=== PATIENT | female | born 1975 | race Caucasian/White ===

== ENCOUNTER 2018-02-17 03:41 | Emergency (ER) | payer BC, SELFPAY ==
[2018-02-17 03:42] VITALS: BP 136/86; PULSE 83; RESP 16; TEMP 36.5; O2SAT 100; BMI 19.1
--- NOTE | 2018-02-17 04:10 | CT_ITS ---
STUDY: CT ABDOMEN AND PELVIS WITH CONTRAST REASON FOR EXAM: Female, 43 years old. Bloody diarrhea and abdominal pain, cramping RADIATION DOSAGE (If Supplied By Facility): CTDIvol = ( 13.06 ) mGy, DLP = ( 286.25 ) mGycm TECHNIQUE: Transaxial 3.75 mm images were obtained from the dome of the diaphragm to the symphysis pubis with oral contrast. 100 ml of Isovue 300 contrast was administered. Sagittal and coronal images were reconstructed. Individualized dose optimization techniques were used for this CT. COMPARISON: None. FINDINGS: The visualized lung bases are unremarkable. The visualized portions of the heart are within normal limits. Left hepatic cyst 1.2 x 1.9 cm. Trace perihepatic fluid along the right inferior hepatic lobe. There is low attenuation along the falciform ligament most consistent with focal fatty sparing. Normal gallbladder and extrahepatic biliary system. Normal spleen. Normal pancreas. Normal bilateral adrenal glands. Normal right kidney. Left mid renal cortical low-attenuation has a cystic appearance, however measures between 35 and 52 Hounsfield units. Normal visualized stomach. Normal small intestine. Abnormal enhancement of the sigmoid colon with a heterogeneous luminal enhancement, indistinct contour, for delineation of the lumen image 75-86 series 2 image 47-65 series 601 image 52-65 series 602. There is moderate amount of fecal material. The appendix is visualized and appears normal. Normal abdominal aorta. Normal inferior vena cava. Normal retroperitoneum. 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 Uterus is to the Normal urinary bladder. Uterus is to the right of pelvic midline. There is mild pelvic fluid. There is pelvic fat stranding. Normal abdominal wall. Normal osseous structures. CT/Abdomen/Pelvis WITH Contrast IMPRESSION: Abnormal sigmoid colon with abnormal enhancement, indeterminate lumen and course. An inflammatory process is not separable from a mass. There is adjacent mesenteric fat stranding and trace pelvic fluid. There is no abscess, collection, perforation or obstruction. 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 Left hepatic cyst, indeterminate low attenuation in the left kidney, ultrasonographic correlation advised. Moderate amount of retained fecal material. Electronically Signed: Shayna Oliva MD at 6:47 EDT , Service support ,
[2018-02-17 04:22] LABS: Absolute Lymphocyte Count 1.74 X10^3/ul (0.83-4.51); Absolute Neutrophil Count 4.9 X10^3/uL (2.0-7.7); Basophil# 0.03 X10^3/uL; Basophil% 0.4 % (0-1); Eosinophil# 0.17 X10^3/uL; Eosinophils% 2.3 % (0-5); Hematocrit 37.2 % (37-47); Lymphocyte # 1.74 X10^3/ul (4.0); Lymphocyte % 23.7 % (19-41); Mean Corp Hgb Conc 32.3 g/gl (32-36); Mean Corpuscular Hgb 28.8 pg (27.0-32.0); Mean Corpuscular Volume 89.2 fL (81-99); Mean Platelet Vol. 10.3 fl (6.2-12.0); Monocyte# 0.44 X10^3/uL; Neutrophil # 4.94 X10^3/uL (2.7-7.7); Neutrophil % 67.5 % (47-70); POSITIVE COUNT NO; POSITIVE DIFFERENTIAL NO; POSITIVE MORPHOLOGY NO; Platelet Count 302 K/mm3 (150-450); RBC Distribution Width CV 13.7 % (11.6-14.6); RBC Distribution Width SD 44.6 fl (35.1-43.9); Red Blood Count 4.17 M/mm3 (4.2-5.4); White Blood Count 7.3 K/mm3 (4.4-11.0)
[2018-02-17 04:30] LABS: Anion Gap 7 (5-15); BUN 8 mg/dL (7-18); BUN/Creat Ratio 10.3 RATIO (10-20); Calcium,Total 8.5 mg/dL (8.5-10.1); Chloride 108 mmol/L (98-107); Creatinine, Serum 0.78 mg/dL (0.55-1.02); EST Glomerular Filtration Rate 86 mL/min (>60); Est Glom Filt Rate - Afr Amer 103 mL/min (>60); Estimated Creatinine Clearance 72.61 ml/min; Glucose 83 mg/dL (74-106); Potassium 4.9 mmol/L (3.5-5.1); Sodium Level 142 mmol/L (136-145)
[2018-02-17] MEDS: 0.9% Normal Saline 1,000 ML 1000 ML IV (04:34)
[2018-02-17] MEDS: Ondansetron 4 MG/2 ML Vial IV (04:34)
[2018-02-17 04:38] VITALS: BP 114/73; BP 121/70; BP 122/65; PULSE 65; PULSE 69; PULSE 80
[2018-02-17 04:42] LABS: Partial Thromboplast Time 31.4 Seconds (24.1-36.2)
[2018-02-17 05:47] VITALS: RESP 16
--- NOTE | 2018-02-17 07:08 | ED.VISSUMM ---
- ER Visit Summary Date of Service: 02/17/18 Chief Complaint: GI bleed History of Present Illness: The patient is a 43 F who reports that 5 days ago she began having this sensation as though she was going to have diarrhea. States she would then go to the restroom and passed gas and small volumes of mucus with a blood-tinged. States that she is having a formed bowel movement approximately once a day. This is normal in caliber. She reports that she has crampy abdominal pain that is 9 out of 10 at worst and 2 out of 10 currently. It is worsened by activity and relieved by remaining still. She reports that she has had similar symptoms off and on for approximately 5 years. No family history of Crohn's or ulcerative colitis. She does report that her grandfather had colon cancer. She has never seen a vocational rehabilitation counselor. She has never had a colonoscopy. Physical Examination: Vitals: Stable. Afebrile. General: Well-nourished and well-developed. Head: Normocephalic atraumatic. Neck: Supple, no lymphadenopathy. No JVD. Nontender. Cardiovascular: Regular rate and rhythm. No murmurs. Respiratory: No respiratory distress. Clear to auscultation bilaterally. Abdominal: Soft, nontender, nondistended, normal bowel sounds. No guarding, rebound, or peritoneal signs. Back: Nontender. Extremities: Nontender, no edema. Skin: Normal color, no rash. Neurologic: Alert and oriented ?3. Cranial nerves II through XII are intact. Normal strength and sensation. Psych: Normal affect. Test Results: CBC is normal. Her hemoglobin is 12. There is not an old for comparison. Chem-7 shows a chloride of 108. Coags are normal. Clinical Impression(s) from Imaging Studies Abdomen/Pelvis CT 02/17/18 04:10 IMPRESSION: Abnormal sigmoid colon with abnormal enhancement, indeterminate lumen and course. An inflammatory process is not separable from a mass. There is adjacent mesenteric fat stranding and trace pelvic fluid. There is no abscess, collection, perforation or obstruction. 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 Left hepatic cyst, indeterminate low attenuation in the left kidney, ultrasonographic correlation advised. Moderate amount of retained fecal material. Emergency Department Course and Treatment: Patient had negative orthostatic vital signs. She is resting comfortably. Treatment Plan: The patient was discussed with Dr. Kang. She states that she will see her next week and do a colonoscopy for further evaluation. I did discuss the patient the possibility of inflammatory bowel disease or colon cancer and she understands the importance of follow-up. Return to the emergency department for any worsening symptoms. Disposition: To home in improved and stable condition. Impression: 1. Stable lower GI bleed. This note was generated with [employer] software. It may contain incorrect words, spelling, and punctuation that were not noted in review of the chart prior to signing ED Disposition - Plan for ED Patient: Disposition: Home or Assisted Living Chief Complaint: GI Bleed Instructions: ED Hematochezia Stable Referrals: Dena Kang MD [STAFF PHYSICIAN] - 1 Week
[2018-02-17 07:13] VITALS: BP 121/64; PULSE 79; RESP 18; O2SAT 100
--- NOTE | 2018-02-17 07:14 | ED.RN ---
THIS NURSE REVIEWED D/C INSTRUCTIONS WITH PT. PT VERBALIZED UNDERSTANDING OF INSTRUCTIONS. IV D/C. IV CATHETER INTACT. PT TOLERATED WELL. PT DENIES FURTHER NEEDS OR QUESTIONS AT THIS TIME. PT AMBULATES FROM ROOM ON OWN WITHOUT ASSISTANCE FROM STAFF
== END 2018-02-17 07:16 | disposition home or self-care (01) ==
PROVIDERS: Emergency Provider Emergency Medicine
DX: K92.1 Melena (principal); R19.7 Diarrhea, unspecified; R10.9 Unspecified abdominal pain
CPT/HCPCS: 74177; 80048; 85025; 85610; 85730; 96361; 96374; 99284; J7030; Q9967; A4216; J2405

== ENCOUNTER 2018-03-07 07:44 | Inpatient (IN) | payer BC, OTHER, SELFPAY ==
[2018-03-07] VITALS (9 sets, daily range): BP systolic 103–135; BP diastolic 65–83; PULSE 63–74; RESP 14–16; TEMP 36–36.8; O2SAT 99–100; BMI 19.4
--- NOTE | 2018-03-07 | IMM_PTH ---
PATIENT: JULIAN MANUEL LOC: MS2 U#:[id number] AGE/SX: 43/F ROOM: [facility] [place] RE03/07/[address]: Dr. Madan Love MD : 1975 BED: 1 DIS: 03/10/2018 SPEC #: [id number] RECD: 03/10/18 10:01 STATUS: JENNIFER REPatricia #: [id number] OTONIEL: 03/07/18 00:[address]: Madan Love DEPT: IMMUNOHISTOCHEMISTRY RECD BY: Diane Sharma ENTERED: 03/16/18 10:07 SP TYPE: IMMUNO OT DR: Out [facility] Doctor Tissues: C - Rectosigmoid junction Procedures: P53 (initial) MSH2 (add) MLH-1 (add) MSH6 (add) Anti-PMS2 (add) HAIDER-2 (add) HER2 CRISTOPHER (add) KI-67 (add) PHYSICIAN & INSTITUTION [place] [id number] SPECIMEN INFORMATION: Tissue Source: A ? 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 Localization is made via biotin free immunoperoxidase method. Appropriate controls are performed and reacted as expected. Results on target cell population are indicated in the following table: RESULTS: ANTIBODY / CLONE RESULT Block C8 COLON CANCER PROFILE (Prognostic Markers) Ki-67 (30-9) moderate to high P53 (DO-7) 15% MSH2 (25D12) rare cells only MSH6 (44) negative MLH-1 (M1) positive PMS2 (GPD5850) positive HAIDER-2 (SP21) positive Her-2neu (CB11) negative These tests were developed and their performance characteristics determined by [facility]. They may not have been cleared or approved by the U.S. Food and Drug Administration. The FDA has determined that such clearance or approval is not necessary. INTERPRETATION: A. Lateral side wall nodule, biopsy: Invasive adenocarcinoma. Result of Microsatellite Instability Study: Positive (loss of mismatch protein; microsatellite instability detected). Near total loss of MSH2, Complete loss of MSH6 Case has been reviewed in consultation with Dr. Kovacs who concurs with the above diagnosis. IDC:SUNNY AM:jaylon 03/18/18
[2018-03-07 08:09] LABS: Internal QC Validated? YES +Cl - CLEAR BKGD; Pregnancy, Urine Negative Negative
--- NOTE | 2018-03-07 09:45 | COL_PTH ---
PATIENT: JULIAN MANUEL LOC: MS2 U#:[id number] AGE/SX: 43/F ROOM: [facility] [place] RE03/07/[address]: Dr. 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 Lateral side wall nodule for FS, specimen sent to lab 1219, B ? Appendix C ? Rectosigmoid colon, D ? Proximal donut, E ? Distal donut FROZEN SECTION DIAGNOSIS A. Lateral side wall nodule, biopsy: Negative for carcinoma. SJ:jyalon 03/07/18 MICROSCOPIC DIAGNOSIS A. Lateral side wall nodule, biopsy: Fibrofatty tissue with associated chronic and mild acute inflammation. No evidence of malignancy. B. Appendix, appendectomy: No significant pathologic change. No evidence of acute appendicitis. C. Rectosigmoid colon, segmental colectomy: Invasive adenocarcinoma. See comment for cancer checklist. D. Proximal mucosal donut, excision: Fragment of benign colonic tissue. E. Distal mucosal donut, excision: Fragment of benign colonic tissue. AM:jaylon 03/10/18 COMMENT C. COLON CANCER SUMMARY: Specimen ? rectosigmoid colon Procedure - colectomy Tumor site - rectosigmoid colon Tumor size ? 5 x 5 x 4.5 cm Macroscopic tumor perforation ? not present Histologic type ? adenocarcinoma with mucinous features Histologic grade ? low grade (moderately differentiated) Microscopic tumor extension ? tumor invades through muscularis propria into subserosal fat. Margins: Closest mucosal margin ? 8 cm from open resection margin Proximal mucosal margin ? uninvolved by invasive carcinoma Distal mucosal margin - uninvolved by invasive carcinoma Circumferential margin - uninvolved by invasive carcinoma Treatment effect - unknown Lymph-Vascular invasion ? not identified Perineural invasion - not identified Tumor deposits - not identified Lymph nodes: Number of lymph nodes examined - 29 Number of lymph nodes involved by invasive carcinoma - 4 Ancillary studies: See microsatellite instability study by IHC ([id number]) for complete details. Microsatellite instability ? microsatellite instability detected ([id number]) Immunohistochemistry Studies for Mismatch Repair Proteins: MLH1 ? no loss (intact nuclear positivity) MSH2 ? near total loss (very focal positivity). MSH6 ? total loss. PMS2 ? no loss (intact nuclear positivity). PATHOLOGIC STAGE: pT3 N1b Mx The above summary is in compliance with [employer] [place] [employer] (CAP) Cancer Protocols Checklist and [place] [employer] Committee on Cancer (AJCC), Staging Manual, 8th Ed. This case was discussed with Dr. Love 10:13 a.m. on 03/14/18. Case has been reviewed in consultation with Dr. Kovacs who concurs with the above diagnosis. IDC:SJ MICROSCOPIC DESCRIPTION Slides are reviewed. GROSS DESCRIPTION A - Received fresh for frozen section diagnosis labeled with the patient's name is a specimen designated lateral side wall nodule. The specimen consists of a piece of hamilton-pink soft tissue measuring 1 x 0.5 x 0.3 cm. The entire specimen is submitted in one cassette for frozen section diagnosis. / SUNNY:jaylon 03/07/18 B - Received is one container labeled with the patient's name and designated appendix. The specimen consists of an appendix measuring 5 cm in length and up to 0.5 cm in average diameter. The attached periappendiceal adipose tissue measures up to 1 cm in width. No obvious perforation is identified. The lumen contains fecal material. No fecalith is identified. General Accountant sections are submitted in one cassette. / SJ:jaylon 03/08/18 C - Received in fixative is one container labeled with the patient's name and designated rectosigmoid colon. The specimen consists of a previously opened segment of colon measuring 20 cm in length. One margin is stapled and other margin is opened. 8 cm away from the open resection margin and 9 cm away from the stapled margin, there is a cauliflower-like mass with focal area of ulceration measuring 5 x 5 x 4.5 cm. A small focal area of thickened mucosal fold is also noted measuring 0.4 cm in greatest dimension. Sections of the mass reveal it appears to involve the full thickness of the bowel wall. Sections of the pericolonic adipose tissue reveal multiple lymph nodes. The largest lymph node measures 1.5 cm in greatest dimension. General Accountant sections are submitted as follows: 1 ? resection margin, open resection margin is inked black, 2 ? thickened mucosal fold, 3-8 ? tumor (7 & 8 contains the luminal portion of the tumor), 9 ? enrollment representative section of uninvolved bowel wall, 10 ? multiple lymph nodes, 11 - multiple lymph nodes, 12 ? one serially sectioned lymph node, 13 ? one bisected lymph node, 14 - one serially sectioned lymph node, largest lymph node, 15 ? one bisected lymph node, 16 - one bisected lymph node, 17 - one bisected lymph node, 18 - one bisected lymph node, 19 - one bisected lymph node, 20 ? multiple lymph nodes. Sections will be submitted after infusion cycle. / SJ:jaylon 03/08/18 D - Received in fixative is one container labeled with the patient's name and designated proximal donut. The specimen consists of a donut-shaped piece of colonic tissue measuring 1.5 x 1.5 x 1 cm. Multiple sutures are noted. General Accountant sections are submitted in one cassette. / SJ:jaylon 03/08/18 E - Received in fixative is one container labeled with the patient's name and designated distal donut. The specimen consists of a donut-shaped piece of colonic tissue measuring 2 x 1.7 x 1 cm. The mucosa is focally congested. The specimen is serially sectioned and submitted entirely in one cassette. / SJ:jaylon 03/08/18 TC:0 CPT: 12834, 71181 x4, 64929 ADDENDUM ADDENDUM ADDENDUM ADDENDUM ADDENDUM ADDENDUM ADDENDUM ADDENDUM 04/26/2018 14:27 ADDENDUM 04/26/2018 14:27 ADDENDUM 04/26/2018 14:27 ADDENDUM 04/26/2018 14:27 ADDENDUM 04/26/2018 14:27 MICROSATELLITE INSTABILITY (MSI) ANALYSIS BY PCR FROM [employer] RESULTS: Microsatellite instability (MSI) analysis by PCR: Microsatellite stable (MIA) COMMENT: No defective mismatch repair is detected. Please see complete report in e-chart or EMR for further details
--- NOTE | 2018-03-07 09:45 | COL_PTH ---
PATIENT: JULIAN MANUEL LOC: MS2 U#:[id number] AGE/SX: 43/F ROOM: [facility] [place] RE03/07/[address]: Dr. 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 Lateral side wall nodule for FS, specimen sent to lab 1219, B ? Appendix C ? Rectosigmoid colon, D ? Proximal donut, E ? Distal donut FROZEN SECTION DIAGNOSIS A. Lateral side wall nodule, biopsy: Negative for carcinoma. SJ:jaylon 03/07/18 MICROSCOPIC DIAGNOSIS A. Lateral side wall nodule, biopsy: Fibrofatty tissue with associated chronic and mild acute inflammation. No evidence of malignancy. B. Appendix, appendectomy: No significant pathologic change. No evidence of acute appendicitis. C. Rectosigmoid colon, segmental colectomy: Invasive adenocarcinoma. See comment for cancer checklist. D. Proximal mucosal donut, excision: Fragment of benign colonic tissue. E. Distal mucosal donut, excision: Fragment of benign colonic tissue. AM:jaylon 03/10/18 COMMENT C. COLON CANCER SUMMARY: Specimen ? rectosigmoid colon Procedure - colectomy Tumor site - rectosigmoid colon Tumor size ? 5 x 5 x 4.5 cm Macroscopic tumor perforation ? not present Histologic type ? adenocarcinoma with mucinous features Histologic grade ? low grade (moderately differentiated) Microscopic tumor extension ? tumor invades through muscularis propria into subserosal fat. Margins: Closest mucosal margin ? 8 cm from open resection margin Proximal mucosal margin ? uninvolved by invasive carcinoma Distal mucosal margin - uninvolved by invasive carcinoma Circumferential margin - uninvolved by invasive carcinoma Treatment effect - unknown Lymph-Vascular invasion ? not identified Perineural invasion - not identified Tumor deposits - not identified Lymph nodes: Number of lymph nodes examined - 29 Number of lymph nodes involved by invasive carcinoma - 4 Ancillary studies: See microsatellite instability study by IHC ([id number]) for complete details. Microsatellite instability ? microsatellite instability detected ([id number]) Immunohistochemistry Studies for Mismatch Repair Proteins: MLH1 ? no loss (intact nuclear positivity) MSH2 ? near total loss (very focal positivity). MSH6 ? total loss. PMS2 ? no loss (intact nuclear positivity). PATHOLOGIC STAGE: pT3 N1b Mx The above summary is in compliance with [employer] [place] [employer] (CAP) Cancer Protocols Checklist and [place] [employer] on Cancer (AJCC), Staging Manual, 8th Ed. This case was discussed with Dr. Love 10:13 a.m. on 03/14/18. Case has been reviewed in consultation with Dr. Kovacs who concurs with the above diagnosis. IDC:SJ MICROSCOPIC DESCRIPTION Slides are reviewed. GROSS DESCRIPTION A - Received fresh for frozen section diagnosis labeled with the patient's name is a specimen designated lateral side wall nodule. The specimen consists of a piece of hamilton-pink soft tissue measuring 1 x 0.5 x 0.3 cm. The entire specimen is submitted in one cassette for frozen section diagnosis. / SUNNY:jaylon 03/07/18 B - Received is one container labeled with the patient's name and designated appendix. The specimen consists of an appendix measuring 5 cm in length and up to 0.5 cm in average diameter. The attached periappendiceal adipose tissue measures up to 1 cm in width. No obvious perforation is identified. The lumen contains fecal material. No fecalith is identified. Fitter Helper sections are submitted in one cassette. / SJ:jaylon 03/08/18 C - Received in fixative is one container labeled with the patient's name and designated rectosigmoid colon. The specimen consists of a previously opened segment of colon measuring 20 cm in length. One margin is stapled and other margin is opened. 8 cm away from the open resection margin and 9 cm away from the stapled margin, there is a cauliflower-like mass with focal area of ulceration measuring 5 x 5 x 4.5 cm. A small focal area of thickened mucosal fold is also noted measuring 0.4 cm in greatest dimension. Sections of the mass reveal it appears to involve the full thickness of the bowel wall. Sections of the pericolonic adipose tissue reveal multiple lymph nodes. The largest lymph node measures 1.5 cm in greatest dimension. Fitter Helper sections are submitted as follows: 1 ? resection margin, open resection margin is inked black, 2 ? thickened mucosal fold, 3-8 ? tumor (7 & 8 contains the luminal portion of the tumor), 9 ? bottling equipment sales representative section of uninvolved bowel wall, 10 ? multiple lymph nodes, 11 - multiple lymph nodes, 12 ? one serially sectioned lymph node, 13 ? one bisected lymph node, 14 - one serially sectioned lymph node, largest lymph node, 15 ? one bisected lymph node, 16 - one bisected lymph node, 17 - one bisected lymph node, 18 - one bisected lymph node, 19 - one bisected lymph node, 20 ? multiple lymph nodes. Sections will be submitted after infusion cycle. / SJ:jaylon 03/08/18 D - Received in fixative is one container labeled with the patient's name and designated proximal donut. The specimen consists of a donut-shaped piece of colonic tissue measuring 1.5 x 1.5 x 1 cm. Multiple sutures are noted. Fitter Helper sections are submitted in one cassette. / SJ:jaylon 03/08/18 E - Received in fixative is one container labeled with the patient's name and designated distal donut. The specimen consists of a donut-shaped piece of colonic tissue measuring 2 x 1.7 x 1 cm. The mucosa is focally congested. The specimen is serially sectioned and submitted entirely in one cassette. / SJ:jaylon 03/08/18 TC:0 CPT: 20065, 60067 x4, 24698 ADDENDUM ADDENDUM ADDENDUM ADDENDUM ADDENDUM ADDENDUM ADDENDUM ADDENDUM ADDENDUM ADDENDUM ADDENDUM ADDENDUM ADDENDUM ADDENDUM ADDENDUM ADDENDUM 05/04/2018 09:53 ADDENDUM 05/04/2018 09:53 ADDENDUM 05/04/2018 09:53 ADDENDUM 05/04/2018 09:53 ADDENDUM 05/04/2018 09:53 CORRECTED ADDENDUM 05/03/18 MICROSATELLITE INSTABILITY (MSI) ANALYSIS BY PCR FROM [employer] RESULTS: Microsatellite instability (MSI) analysis by PCR: Microsatellite instability ? low (MSI-L) COMMENT: Normal (C1) compared to tumor (C8). MSI is detected in 1 of 5 mononucleotide repeat markers. This genotype is not associated with hereditary nonpolyposis colorectal carcinoma (HNPCC). A phone call regarding the results was placed at 10:50 on 05/03/[address] Kovacs. A phone call and fax regarding the results was placed to Dr. Love?s office at 9:15 on 05/04/18. Please see complete report in e-chart or EMR for further details
[2018-03-07] MEDS: Bupivacaine Mpf 0.5% 30 ML VIAL (10:49)
--- NOTE | 2018-03-07 14:48 | PCM.OPRPT ---
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 Sign in was performed verifying patient, site, procedure, position, and DVT prophylaxis with SCDs. Patient received Cefotetan 2gm. Preoperative bowel prep of mechanical and antibiotic comprised of GoLYTELY and then neomycin and Flagyl 1 g 3 doses evening before was given. Following induction of general anesthetic, the patient was placed in a modified lithotomy position and care being taken to or by pressure points in the legs and arms. An upper body strap was placed and a upper body warmer was placed. A Castro catheter was placed. A rectal washout was performed with dilute Betadine solution. The patients abdomen and perineal area were then prepped and draped in the usual fashion. Timeout was performed verifying patient, site, position. Local anesthetic was injected above the umbilicus. Incision made and dissection carried down to the umbilical root fascia. 2 stay sutures were placed. Incision made in the fascia, the peritoneum entered under direct visualization. A 10 mm Caldwell trocar was inserted and secured with the stay sutures. Pneumoperitoneum to 15 mmHg was insufflated. 2 5mm ports were placed in the lower midline and later in the left paramedian position and a 10/12 port were placed in the right lower quadrant inferior laterally. Adhesions were taken down using Harmonic scalpel. . Visual inspection revealed a normal-appearing liver with no significant abnormalities. The large bulky tumor was seen in the pelvis with adhesions to the left lower quadrant. These adhesions were taken down sharply and using the Harmonic scalpel. Following this, the somewhat firm areas, which was still on the lateral abdominal wall was dissected and sent for frozen section. This returned as inflammation, but no signs of malignancy. Once this was completed, mobilization the avascular plane was undertaken from the ascending colon down to the area of the mid sigmoid with care taken at mobilization of the level of the iliac vessels then further down to the left lateral rectal peritoneal reflection. As mobilization progressed, the left and right ureters were able to be visualized and manipulated with aerosols assuring that the ureters were intact.. Once this left-sided mobilization was undertaken, a window was made in to the bare area just proximal to the inferior mesenteric vessels As dissection was continued, the EVY branches were identified and ligated with 10 and 5 mm hemoclips and divided with the Harmonic scalpel. Once this was fully divided and surrounded with dissection carried down to the area posterior to the rectum, a 60 mm echelon stapler with a thick load was placed and fired to transect the rectum. A second load was required. I performed an appendectomy dividing the mesoappendix with the Harmonic scalpel and the base of the appendix with the regular load stapler. The appendix was removed the right lower quadrant port site. With full dissection of the mesentery and full mobilization the colon, the umbilical incision was extended and a wound protector placed. The sigmoid colon were delivered through the wound protector. At this point at the planned transection point of the proximal sigmoid colon, the pericolonic were fully mobilized to the margin of the bowel using the harmonic scalpel. The bowel was transected family with a 10 blade scalpel. A 29 mm CEA circular stapler anvil was then placed in the descending colon region and a 2-0 Prolene pursestring suture was used to close the bowel around the anvil. The bowel did not easily make it to the pelvis, so therefore, mobilization splenic flexure using Harmonic Scalpel was completed with the colon being completely mobilized off to rectus fascia/left kidney. This allowed good reaching of the bowel to the pelvis without tension At this point, I proceeded down to the rectum. Rigid proctoscopy was performed after flooding the pelvis with saline. Insufflation demonstrated no leak at the rectal staple line. The staple line was felt to be approximately 15 cm. Next the 29 CEA stapler was lubricated and placed through the rectum up to the staple line. The spike was then opened just anterior to the previous echelon stapler line and the anvil properly seated onto the stapler and brought down to mid gap. The stapler was fired released and withdrawn from the rectum. The proximal and distal doughnuts were noted to be intact. Repeat proctoscopy was again performed again with the pelvis being flooded with saline. Air left in the rectum with insufflation and there was no intra-abdominal leakage noted. The anastomosis was noted to be at 13 cm from the anal verge Gown and gloves were changed. Pneumoperitoneum was released and the umbilical incision was closed with running 0 PDS sutures with the 2 sutures meeting and closed just above the umbilicus. Pneumoperitoneum was reestablished. The right lower quadrant fascial defect was closed with a running 0 PDS suture. Visual inspection revealed no material adhered to the midline closure. The 5mm ports were removed under direct visualization with no signs of bleeding. Pneumoperitoneum was released. Right lower quadrant fascial suture was secured. Subcutaneous tissue at the level of the umbilicus reapproximated with interrupted 3-0 Vicryl sutures. Skin was closed with interrupted and running 4-0 Monocryl subcuticular sutures. Steri-Strips and bandages were applied. The patient was taken from lithotomy position and placed in the standard supine position. The Castro was removed. All sponge and instrument counts were correct. The patient was extubated. The patient was brought to recovery room in stable condition. - Admit VTE Documentation VTE Present on Admission: No VTE Mechan Device Prophylaxis: SCD's VTE Pharm Prophylaxis ordered?: No
--- NOTE | 2018-03-07 15:10 | OP.PCM_ITS ---
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 Sign in was performed verifying patient, site, procedure, position, and DVT prophylaxis with SCDs. Patient received Cefotetan 2gm. Preoperative bowel prep of mechanical and antibiotic comprised of GoLYTELY and then neomycin and Flagyl 1 g 3 doses evening before was given. Following induction of general anesthetic, the patient was placed in a modified lithotomy position and care being taken to or by pressure points in the legs and arms. An upper body strap was placed and a upper body warmer was placed. A Castro catheter was placed. A rectal washout was performed with dilute Betadine solution. The patient?s abdomen and perineal area were then prepped and draped in the usual fashion. Timeout was performed verifying patient, site, position. Local anesthetic was injected above the umbilicus. Incision made and dissection carried down to the umbilical root fascia. 2 stay sutures were placed. Incision made in the fascia, the peritoneum entered under direct visualization. A 10 mm Caldwell trocar was inserted and secured with the stay sutures. Pneumoperitoneum to 15 mmHg was insufflated. 2 5mm ports were placed in the lower midline and later in the left paramedian position and a 10/12 port were placed in the right lower quadrant inferior laterally. Adhesions were taken down using Harmonic scalpel. . Visual inspection revealed a normal-appearing liver with no significant abnormalities. The large bulky tumor was seen in the pelvis with adhesions to the left lower quadrant. These adhesions were taken down sharply and using the Harmonic scalpel. Following this, the somewhat firm areas, which was still on the lateral abdominal wall was dissected and sent for frozen section. This returned as inflammation, but no signs of malignancy. Once this was completed, mobilization the avascular plane was undertaken from the ascending colon down to the area of the mid sigmoid with care taken at mobilization of the level of the iliac vessels then further down to the left lateral rectal peritoneal reflection. As mobilization progressed, the left and right ureters were able to be visualized and manipulated with aerosols assuring that the ureters were intact.. Once this left-sided mobilization was undertaken, a window was made in to the bare area just proximal to the inferior mesenteric vessels As dissection was continued, the EVY branches were identified and ligated with 10 and 5 mm hemoclips and divided with the Harmonic scalpel. Once this was fully divided and surrounded with dissection carried down to the area posterior to the rectum , a 60 mm echelon stapler with a thick load was placed and fired to transect the rectum. A second load was required. I performed an appendectomy dividing the mesoappendix with the Harmonic scalpel and the base of the appendix with the regular load stapler. The appendix was removed the right lower quadrant port site. With full dissection of the mesentery and full mobilization the colon, the umbilical incision was extended and a wound protector placed. The sigmoid colon were delivered through the wound protector. At this point at the planned transection point of the proximal sigmoid colon, the pericolonic were fully mobilized to the margin of the bowel using the harmonic scalpel. The bowel was transected family with a 10 blade scalpel. A 29 mm CEA circular stapler anvil was then placed in the descending colon region and a 2-0 Prolene pursestring suture was used to close the bowel around the anvil. The bowel did not easily make it to the pelvis, so therefore, mobilization splenic flexure using Harmonic Scalpel was completed with the colon being completely mobilized off to rectus fascia/left kidney. This allowed good reaching of the bowel to the pelvis without tension At this point, I proceeded down to the rectum. Rigid proctoscopy was performed after flooding the pelvis with saline. Insufflation demonstrated no leak at the rectal staple line. The staple line was felt to be approximately 15 cm. Next the 29 CEA stapler was lubricated and placed through the rectum up to the staple line. The spike was then opened just anterior to the previous echelon stapler line and the anvil properly seated onto the stapler and brought down to mid gap. The stapler was fired released and withdrawn from the rectum. The proximal and distal doughnuts were noted to be intact. Repeat proctoscopy was again performed again with the pelvis being flooded with saline. Air left in the rectum with insufflation and there was no intra-abdominal leakage noted. The anastomosis was noted to be at 13 cm from the anal verge Gown and gloves were changed. Pneumoperitoneum was released and the umbilical incision was closed with running 0 PDS sutures with the 2 sutures meeting and closed just above the umbilicus. Pneumoperitoneum was reestablished. The right lower quadrant fascial defect was closed with a running 0 PDS suture. Visual inspection revealed no material adhered to the midline closure. The 5mm ports were removed under direct visualization with no signs of bleeding. Pneumoperitoneum was released. Right lower quadrant fascial suture was secured. Subcutaneous tissue at the level of the umbilicus reapproximated with interrupted 3-0 Vicryl sutures. Skin was closed with interrupted and running 4- 0 Monocryl subcuticular sutures. Steri-Strips and bandages were applied. The patient was taken from lithotomy position and placed in the standard supine position. The Castro was removed. All sponge and instrument counts were correct. The patient was extubated. The patient was brought to recovery room in stable condition. - Admit VTE Documentation VTE Present on Admission: No VTE Mechan Device Prophylaxis: SCD's VTE Pharm Prophylaxis ordered?: No
[2018-03-07] MEDS: Morphine 4 MG/ML Syringe IV (17:49)
[2018-03-07] MEDS: Ondansetron 4 MG/2 ML Vial IV (17:59)
[2018-03-07] MEDS: 0.9% NaCl Peripheral Flush Adult/Peds IV ×2 (17:59→21:00)
[2018-03-07] MEDS: Lactated Ringers 1,000 ML 80 ML IV (19:41)
[2018-03-07] MEDS: proCHLORPERazine 10 MG/2 ML Vial 5 MG IV (21:00)
--- NOTE | 2018-03-07 22:05 | NURSING ---
AMBULATED IN SOMMERS, GAIT STEADY.
[2018-03-08] MEDS: HYDROmorphone 1 MG/ML Syringe IV ×5 (00:23→21:00)
[2018-03-08] MEDS: 0.9% NaCl Peripheral Flush Adult/Peds IV ×2 (00:23→06:48)
[2018-03-08 03:10] VITALS: BP 107/55; PULSE 70; RESP 16; TEMP 37.2; O2SAT 99
[2018-03-08] MEDS: Lactated Ringers 1,000 ML 80 ML IV ×2 (06:54→20:01)
[2018-03-08 09:44] VITALS: BP 105/68; PULSE 65; RESP 16; TEMP 36.9; O2SAT 100
[2018-03-08] MEDS: Ibuprofen 400 MG Tablet PO (11:49)
--- NOTE | 2018-03-08 12:31 | CASEMGMT ---
See [facility]OL CULLEN Assessment Link. DC PLAN: Home -Intro role of CM to patient and her in room. Pt was independent prior to admission. Plan is to return home on discharge with to support. He is taking SANJEEV to help. -Pt has small farm, animals. states he will assist in caring for them until is able to. CAROL CULLEN did discuss that dc instructions will list restrictions on activity including lifting restrictions. Kaylan NARVAEZ RN ACM
[2018-03-08 15:40] VITALS: BP 102/62; PULSE 51; RESP 14; TEMP 36.8; O2SAT 99
--- NOTE | 2018-03-08 19:13 | PCM.PN.SRG ---
Subjective: incisional pain and some nausea - Physical Exam General: Alert, Oriented x3, Cooperative Lungs: Clear to auscultation, Normal air movement Cardiovascular: Regular rate, No murmurs Abdomen: Bowel Sounds Present, Soft, Hypoactive Bowel Sounds, Tender - at incisions Vital Signs Temp Pulse Resp BP Pulse Ox 98.3 F 51 L 14 102/62 99 03/08/18 15:40 03/08/18 15:40 03/08/18 15:40 03/08/18 15:40 03/08/18 15:40 Oxygen Delivery Method Room Air Weight: 46.7 kg Body Mass Index (BMI) 19.4 Intake and Output for Last 24 Hours 03/06/18 03/07/18 03/08/18 23:59 23:59 23:59 Intake Total 2621 / 2621 2910 / 2910 Output Total 300 / 300 3600 / 3600 Balance 2321 / 2321 -690 / -690 Medical Necessity - Tobacco Use Smoking Status: Never smoker Assessment/Plan POD # 1 status post laparoscopic low anterior resection with splenic flexure mobilization for large bulky sigmoid cancer significant pain overnight and nausea, which seemed to have been relieved with Dilaudid and Compazine. This morning his few bowel sounds. Incisional discomfort. We will encourage incentive spirometry and we'll encourage ambulation. We'll have patient chew gum. We will have patient take sips of sugar clear liquids/Gatorade. We'll start subcutaneous heparin for DVT prophylaxis and continue SCDs.
[2018-03-08 20:42] VITALS: BP 105/61; PULSE 56; RESP 16; TEMP 36.8; O2SAT 100
[2018-03-09 02:19] VITALS: BP 98/60; PULSE 50; RESP 16; TEMP 37; O2SAT 99
[2018-03-09] MEDS: HYDROmorphone 1 MG/ML Syringe IV (05:34)
[2018-03-09 09:17] VITALS: BP 99/61; PULSE 67; RESP 16; TEMP 36.6; O2SAT 99
[2018-03-09] MEDS: oxyCODONE 5 MG Tablet PO ×3 (11:13→19:21)
[2018-03-09 14:41] VITALS: BP 109/57; PULSE 56; RESP 16; TEMP 36.8; O2SAT 100
--- NOTE | 2018-03-09 18:16 | PCM.PN.SRG ---
Subjective: passing some flatus - Physical Exam General: Alert, Oriented x3, Cooperative Lungs: Clear to auscultation, Normal air movement Cardiovascular: Regular rate, No murmurs Abdomen: Bowel Sounds Present, Soft, Non Tender - except for mild tenderness at incisions Vital Signs Temp Pulse Resp BP Pulse Ox 98.3 F 56 L 16 109/57 L 100 03/09/18 14:41 03/09/18 14:41 03/09/18 14:41 03/09/18 14:41 03/09/18 14:41 Oxygen Delivery Method Room Air Weight: 46.7 kg Body Mass Index (BMI) 19.4 Intake and Output for Last 24 Hours 03/07/18 03/08/18 03/09/18 23:59 23:59 23:59 Intake Total 2621 / 2621 3731 / 3731 1863 / 1863 Output Total 300 / 300 4550 / 4550 1450 / 1450 Balance 2321 / 2321 -819 / -819 413 / 413 Medical Necessity - Tobacco Use Smoking Status: Never smoker Assessment/Plan POD # 2 status post laparoscopic low anterior resection with splenic flexure mobilization for large bulky sigmoid cancer significant pain overnight and nausea, which seemed to have been relieved with Dilaudid and Compazine. This morning his few bowel sounds. Incisional discomfort. We will encourage incentive spirometry and we'll encourage ambulation. We'll have patient chew gum. advance diet slowly as tolerated. Continue subcutaneous heparin for DVT prophylaxis and continue SCDs.
[2018-03-09 21:09] VITALS: BP 105/64; PULSE 54; RESP 18; TEMP 36.4; O2SAT 100
[2018-03-10 04:05] VITALS: BP 97/51; PULSE 64; RESP 16; TEMP 36.7; O2SAT 99
--- NOTE | 2018-03-10 08:10 | PCM.DC.GS ---
Discharge Diet: - - low residue until bowel movements, then regular Discharge Activity: May Not Drive - for 1 week or while taking narcotic pain meds. May shower in (days): 1 Lifting Restrictions: 10 pounds Call your doctor if your incision/area has: Continuous Slow Oozing, Sudden Increased Bleeding, Increased Pain/ Swelling, Increased Redness, Foul Smelling Discharge Call your doctor if you observe: Fever of 101 or Higher Allergies/Adverse Reactions: Allergies No Known Allergies Allergy (Verified 03/03/18 10:59) Medications to take at Discharge Ibuprofen [Motrin] 400 mg PO Q4H PRN PRN tablet 03/10/18 Oxycodone [Oxyir] 5 mg PO Q4H PRN PRN #16 tab 03/10/18 The following prescriptions were given: Oxycodone [Oxyir] 5 mg PO Q4H PRN PRN #16 tab PRN Reason: Severe Pain (6-07/19) Primary Care Physician: Adarsh Mariano,Out of [Primary Care Provider] - Please Follow Up With: Madan Love MD When: follow up next week
[2018-03-10 08:33] VITALS: BP 109/64; PULSE 78; RESP 18; TEMP 36.8; O2SAT 97
--- NOTE | 2018-03-10 19:12 | PCM.DC.SUM ---
Discharge Date and Diagnosis Date of Admission: 03/07/18 Date of Discharge: 03/10/18 - Primary Discharge Diagnosis rectosigmoid colon cancer Hospital Course and Treatment Operations: colectomy Summary of Care Provided: The patient is a 43 year old F who presented with a near obstructing rectosigmoid colon cancer. she was admitted and underwent a laparoscopic low anterior resection with laparoscopic splenic flexure mobilization and laparoscopic appendectomy on March 04, 2018. the patient followed an enhanced recovery after surgery pathwaywith early oral intake, minimal narcotics and ambulation. The patient had return of bowel function postoperatively 2 and was discharged to home on a full liquid diet on postoperative day 3. Discharge Diet: - - low residue until bowel movements, then regular Discharge Activity: May Not Drive - for 1 week or while taking narcotic pain meds. May shower in (days): 1 Call your doctor if your incision/area has: Continuous Slow Oozing, Sudden Increased Bleeding, Increased Pain/ Swelling, Increased Redness, Foul Smelling Discharge Call your doctor if you observe: Fever of 101 or Higher Home Medications: Medications to take at Discharge Ibuprofen [Motrin] 400 mg PO Q4H PRN PRN tablet 03/10/18 Oxycodone [Oxyir] 5 mg PO Q4H PRN PRN #16 tab 03/10/18 Following Prescrptions Were Given to Patient: Oxycodone [Oxyir] 5 mg PO Q4H PRN PRN #16 tab PRN Reason: Severe Pain (6-10/10) Primary Care Physician: Adarsh Mariano,Out of [Primary Care Provider] - Please Follow Up With: Madan Love MD When: follow up next week Medical Necessity - Tobacco Use Smoking Status: Never smoker Meaningful Use Info Meaningful Use Diagnoses (Choose all that apply): None applicable
== END 2018-03-10 09:10 | disposition home or self-care (01) | DRG 333 ==
LOC: ACINP 07:46 → MS2 10:11
PROVIDERS: Admitting Provider Surgery; Visit Provider Surgery
PROC: 0DTN0ZZ Resection of Sigmoid Colon, Open Approach (ICD-10-PCS; CPT 44204; principal; 2018-03-07 09:20)
DX: C19 Malignant neoplasm of rectosigmoid junction (principal); Z68.1 Body mass index [BMI] 19.9 or less, adult; R63.4 Abnormal weight loss
CPT/HCPCS: 81025; 88304; 88305; 88307; 88309; 88331; 88341; 88342; J7120; A4216; J2405

== ENCOUNTER 2020-10-31 06:26 | Day surgery (SDC) | payer MEDICAID, SELFPAY ==
--- NOTE | 2020-09-29 18:16 | HP.PCM_ITS ---
History and Physical Date of Admission: 10/16/20 Pre-Op History and Physical ? HPI: The patient is a 45 year old female presenting for pre-operative visit. 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 ??Procedure discussed along with risks, benefits and complications. ?Other alternatives discussed for management. Consent form signed??Yes.? PAST MEDICAL HISTORY PAST MEDICAL HISTORY Diagnosis Date ? Cancer of sigmoid (HCC) ? ? Snoring ? ? ? PAST SURGICAL HISTORY PAST SURGICAL HISTORY Procedure Laterality Date ? APPENDECTOMY ? 03/07/2018 ? APPENDECTOMY ? ? ? COLON SURGERY HX ? ? ? COLONOSCOP W/ OR W/O BRSH SPEC ? 03/02/2018 ? Colonoscopy ? COLONOSCOP W/ OR W/O BRSH SPEC ? 02/20/2019 ? Colonoscopy ? COLONOSCOP W/ OR W/O BRSH SPEC ? 08/26/2020 ? Colonoscopy ? D+C ? 1995 ? EGD W/O OR W/BRUSH/WASH ? 08/26/2020 ? EGD ? LAPARO PARTIAL COLECTOMY ? 03/07/2018 ? laparoscopic LAR, lap splenic flexure mobilization [facility] ? ? CURRENT MEDICATIONS No current outpatient medications on file. ? No current facility-administered medications for this visit. ? ALLERGIES:?Patient has no known allergies. ? PERSONAL HISTORY:? SOCIAL HISTORY Social History ? Tobacco Use ? Smoking status: Never Smoker ? Smokeless tobacco: Never Used Substance Use Topics ? Alcohol use: No ? Drug use: No ? FAMILY HISTORY:? FAMILY HISTORY FAMILY HISTORY Problem Relation Age of Onset ? Heart Father ?HEART VALVE PROBLEM ? Colon Cancer Maternal Grandfather ? ? other (endometrial cancer) Paternal Aunt ? ? other (endometrial CA) Paternal cousin ? ? other (Rock syndrome) Paternal cousin ? ? REVIEW OF SYMPTOMS: GENERAL: denies fevers or chills ENDOCRINOLOGY: has not been on steroids Cardiology : denies palpitations or chest pain Respiratory: denies SOB or cough Hematology: denies history of prolonged bleeding or easy bruising or VTE Allergy: Denies history of personal or family history of allergy to anesthesia ? ? PHYSICAL EXAMINATION: ? VITALS:?Last menstrual period 08/26/2020. ? GENERAL:??The patient is well nourished, well hydrated in no acute distress. ?, The patient is oriented to time, place, and person. NECK:?Supple. No lynphadenopathy, normal thyroid, no thyromegaly. LUNGS:?Clear to auscultation bilaterally. no wheezes, rhonchi or rales HEART:?Regular rate and rhythm, Normal heart sounds and No murmurs or gallops ? 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 PLAN:???The risks/benefits/alternatives and personal involved for the planned?LAVH, BSO?were reviewed with the patient. Her questions were answered to her satisfaction and she desires to proceed. ?Consent was signed. ?I reviewed with her postop instructions and expectations. ? ? I have reviewed and updated past medical and surgical history, medications and allergies? This H&P was completed in my office on 09/29/2020. Procedure Criteria Procedure Type: Elective COVID Risk Discussion: The surgeon/proceduralist and patient have discussed in detail the risk of exposure to and/or potential harm posed by the COVID-19 virus with having a surgery/procedure at this time versus the risk of delaying the surgery/procedure. It is not possible to know either the risk of delaying the surgery or procedure or chance of getting an infection with perfect accuracy, but a joint decision was made between the patient and the surgeon/proceduralist to proceed at this time with the scheduled surgery/procedure as indicated on the consent form.
[2020-10-15 10:45] LABS: Magnesium 2.3 mg/dL (1.6-2.6)
[2020-10-15 11:32] LABS: Hematocrit 36.2 % (37-47); Hemoglobin 11.9 g/dL (12.0-15.0); Mean Corp Hgb Conc 32.9 g/dL (32-36); Mean Corpuscular Hgb 30.1 pg (27.0-32.0); Mean Corpuscular Volume 91.4 fL (81-99); Mean Platelet Vol. 11.2 fl (6.2-12.0); Platelet Count 249 K/mm3 (150-450); RBC Distribution Width CV 12.4 % (11.6-14.6); RBC Distribution Width SD 41.1 fl (35.1-43.9); Red Blood Count 3.96 M/mm3 (4.2-5.4); White Blood Count 7.2 K/mm3 (4.4-11.0)
[2020-10-31] VITALS (10 sets, daily range): BP systolic 106–120; BP diastolic 59–76; PULSE 68–77; RESP 16–18; TEMP 36.1–36.9; O2SAT 97–100; BMI 27.8
[2020-10-31 07:50] LABS: Internal QC Validated? YES +Cl - CLEAR BKGD; Pregnancy, Urine Negative Negative
[2020-10-31] MEDS: Lactated Ringers 1,000 ML 100 ML IV (07:52)
[2020-10-31] MEDS: Scopolamine 1mg/72hr Patch 1 PATCH TD (07:53)
[2020-10-31] MEDS: Enoxaparin 40 MG/0.4 ML Syringe SC (07:53)
[2020-10-31 08:11] LABS: Bedside Glucose 95 mg/dL (70-110)
--- NOTE | 2020-10-31 08:30 | HYST_PTH ---
PATIENT: JULIAN MANUEL LOC: [facility] [place] U#:[id number] AGE/SX: 45/F ROOM: RE10/31/[address]: Dr. Barbie Winn MD : 1975 BED: DIS: 10/31/2020 SPEC #: [id number] RECD: 10/31/20 11:57 STATUS: JENNIFER FERGUSONPatricia #: [id number] OTONIEL: 10/31/20 08:[address]: Barbie Winn DEPT: SURGICAL PATHOLOGY RECD BY: Ana Paul ENTERED: 10/31/20 13:41 SP TYPE: HYSTERECT OTHR DR: Yolanda Oswald, CATTLE SHIPPER-C Tissues: Uterus, NOS Procedures: Surgery Specimen Level V HEADER OPERATION: ERAS, hysterectomy, LAVH, salpingo-oophorectomy PRE-OP DIAGNOSIS: Hassan syndrome TISSUE SUBMITTED: Uterus, cervix, bilateral ovaries and fallopian tubes MICROSCOPIC DIAGNOSIS Uterus, cervix, bilateral fallopian tubes and ovaries, hysterectomy and bilateral salpingo-oophorectomy: Cervix - chronic cystic cervicitis and squamous metaplasia. Endometrium - secretory endometrium. Myometrium - focal minimal adenomyosis. Bilateral fallopian tubes - no pathologic diagnosis. Right ovary - physiologic follicular and corpus luteal cysts. - A minute benign epithelial cyst. Left ovary - physiologic follicular and corpus luteal cysts. SJ:jaylon 11/03/2020 MICROSCOPIC DESCRIPTION Slides are reviewed. GROSS DESCRIPTION Received in fixative is one container labeled with the patient's name and designated uterus. The specimen consists of a uterus with attached right and left fallopian tubes and ovaries and cervix. The uterus with cervix measures 8 x 6 x 4.5 cm and weighs 88 gm. The posterior serosal surface is irregular. The ectocervix is grossly unremarkable. The endocervical canal measures 2. cm in length and is grossly unremarkable. The triangular endometrial cavity measures 4 x 2.5 cm. The light hamilton endometrium measures up to 0.2 cm in thickness. The myometrium measures 2.2 cm in average thickness and is free of mass lesions. The smooth, glistening, cystic right ovary measures 2.8 x 2.7 x 1.5 cm. Serial sections reveal a blood-filled cyst measuring 1.5 cm in greatest dimension. The adjacent fallopian tube measures 6 cm in length and 0.8 cm in average diameter. No tubo-ovarian adhesions are identified. The left ovary is similar in appearance to the right ovary and measures 3 x 2.5 x 1.5 cm and contains several blood filled cysts ranging in size from 0.5 to 1.2 cm in greatest dimension. The adjacent fallopian tube is similar in appearance to the left fallopian tube and measures 6.5 cm in length and 0.8 cm in average diameter. No tubo-ovarian adhesions are identified. Lining Maker sections are submitted in ten cassettes as follows: 1 - anterior cervix, 2 - posterior cervix, 3 & 4 - anterior uterine wall, 5 & 6 - posterior myometrial wall, 7??right ovary, 8 - right fallopian tube, 9 - left ovary, 10 - left fallopian tube. / AM:jaylon 10/31/20 TC:5 CPT: 37138
--- NOTE | 2020-10-31 08:31 | HP.PCM_ITS ---
History and Physical Date of Admission: 10/31/20 HPI: The patient is a 45 year old female presenting for pre-operative visit. 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 ??Procedure discussed along with risks, benefits and complications. ?Other alternatives discussed for management. Consent form signed??Yes.? PAST MEDICAL HISTORY PAST MEDICAL HISTORY Diagnosis Date ? Cancer of sigmoid (HCC) ? ? Snoring ? ? ? PAST SURGICAL HISTORY PAST SURGICAL HISTORY Procedure Laterality Date ? APPENDECTOMY ? 03/07/2018 ? APPENDECTOMY ? ? ? COLON SURGERY HX ? ? ? COLONOSCOP W/ OR W/O BRSH SPEC ? 03/02/2018 ? Colonoscopy ? COLONOSCOP W/ OR W/O BRSH SPEC ? 02/20/2019 ? Colonoscopy ? COLONOSCOP W/ OR W/O BRSH SPEC ? 08/26/2020 ? Colonoscopy ? D+C ? 1995 ? EGD W/O OR W/BRUSH/WASH ? 08/26/2020 ? EGD ? LAPARO PARTIAL COLECTOMY ? 03/07/2018 ? laparoscopic LAR, lap splenic flexure mobilization [facility] ? ? CURRENT MEDICATIONS No current outpatient medications on file. ? No current facility-administered medications for this visit. ? ALLERGIES:?Patient has no known allergies. ? PERSONAL HISTORY:? SOCIAL HISTORY Social History ? Tobacco Use ? Smoking status: Never Smoker ? Smokeless tobacco: Never Used Substance Use Topics ? Alcohol use: No ? Drug use: No ? FAMILY HISTORY:? w FAMILY HISTORY FAMILY HISTORY Problem Relation Age of Onset ? Heart Father ?HEART VALVE PROBLEM ? Colon Cancer Maternal Grandfather ? ? other (endometrial cancer) Paternal Aunt ? ? other (endometrial CA) Paternal cousin ? ? other (Rock syndrome) Paternal cousin ? ? REVIEW OF SYMPTOMS: GENERAL: denies fevers or chills ENDOCRINOLOGY: has not been on steroids Cardiology : denies palpitations or chest pain Respiratory: denies SOB or cough Hematology: denies history of prolonged bleeding or easy bruising or VTE Allergy: Denies history of personal or family history of allergy to anesthesia ? ? PHYSICAL EXAMINATION: ? VITALS:?Last menstrual period 08/26/2020. ? GENERAL:??The patient is well nourished, well hydrated in no acute distress. ?, The patient is oriented to time, place, and person. NECK:?Supple. No lynphadenopathy, normal thyroid, no thyromegaly. LUNGS:?Clear to auscultation bilaterally. no wheezes, rhonchi or rales HEART:?Regular rate and rhythm, Normal heart sounds and No murmurs or gallops ? 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 PLAN:???The risks/benefits/alternatives and personal involved for the planned?LA VH, BSO?were reviewed with the patient. Her questions were answered to her satisfaction and she desires to proceed. ?Consent was signed. ?I reviewed with her postop instructions and expectations. ? ? I have reviewed and updated past medical and surgical history, medications and allergies? Procedure Criteria Procedure Type: Elective COVID Risk Discussion: The surgeon/proceduralist and patient have discussed in detail the risk of exposure to and/or potential harm posed by the COVID-19 virus with having a surgery/procedure at this time versus the risk of delaying the surgery/procedure. It is not possible to know either the risk of delaying the surgery or procedure or chance of getting an infection with perfect accuracy, but a joint decision was made between the patient and the surgeon/proceduralist to proceed at this time with the scheduled surgery/procedure as indicated on the consent form.
[2020-10-31] MEDS: Celecoxib 200 MG Capsule 400 MG PO (08:33)
[2020-10-31] MEDS: Acetaminophen 500 MG Tablet 1000 MG PO (08:33)
[2020-10-31] MEDS: Gabapentin 600 MG Tablet PO (08:33)
[2020-10-31] MEDS: Cefazolin 2 GM in 0.9% Normal Saline 100 ML IV (08:37)
[2020-10-31] MEDS: dexAMETHasone 10 MG/ML Vial 8 MG IV (08:45)
[2020-10-31] MEDS: Lidocaine 1%/Epi 1:200 (30ml) 30 ML AMPUL (10:05)
--- NOTE | 2020-10-31 10:14 | PCM.DC.VHY ---
Discharge Diet: No Restrictions Discharge Activity: Return to Normal Activity, May Not Drive - while taking narcotic pain medications., May Shower Return to work on:: 11/28/20 May shower in (days): 1 May resume sexual activity in: 6-8 weeks - nothing in the vagina for 6 weeks. Avoid anal intercourse for 6 weeks Call your doctor if your incision/area has: Continuous Slow Oozing, Sudden Increased Bleeding, Increased Pain/ Swelling, Increased Redness, Foul Smelling Discharge Call your doctor if you observe: Fever of 101 or Higher, Inability to urinate, Inability to have a bowel movement, Using more than one pad per hour Cleanse incision/area with: Soap & Water, - - Your incisions have skin glue, it can get. It will fall off on its own Allergies/Adverse Reactions: Allergies No Known Allergies Allergy (Verified 10/31/20 07:40) Orders to be completed after discharge: Type & Screen - PAT ONLY Time Frame: 10/31/20, Facility: [facility], Location: Laboratory Primary Care Physician: Yolanda Oswald NP, TRAIN STARTER-C [Primary Care Provider] - Test Results: Test results from this visit will be discussed in further detail at your follow-up appointment, if applicable. Please Follow Up With: Barbie Winn MD - [phone] When: In my office in 1-2 and 6 weeks or as needed
--- NOTE | 2020-10-31 10:17 | PCM.OPRPT ---
Report of Operation Date of Procedure: 10/31/20 Pre-Operative Diagnosis: Hassan syndrome Post-Operative Diagnosis: same Surgery/Procedure Performed:: AWA ARROYO Description of Surgical Findings:: normal uterus tubes and ovaries manager farm: Davida Chan manager farm: Chelsy Castillo MS3 Type of Anesthesia:: General Anesthesiologist: Nurys Rocha Special Medications: none Specimen's removed: uterus, cervic, bilateral tubes and ovaries Drains: none Estimated Blood Loss (mL): 50 Fluids Replaced: 1300 cc LR Description of Procedure: The patient was taken to the operating room where she was prepped and draped in the dorsal lithotomy position. Her arms were tucked to the side and padded and her legs were placed in the yellowfin stirrups. Care was taken to ensure that she was placed in a neurologically safe and neutral position. A weighted speculum was placed in the vagina and the anterior lip of the cervix was grasped with a single-tooth tenaculum. The uterus sounded to 9 centimeters. The ZTopVisible uterine manipulator was placed and secured. The Castro catheter was placed to straight drain. Attention was turned to the abdominal portion of the case. Before skin incisions were made they were infiltrated with 0.5% Marcaine solution for local anesthetic. An OG tube was used to drain the stomach contents. A 5 left upper quadrant incision was made and while tenting the anterior abdominal wall up with towel clamps a 5 mm blade less trocar and sleeve were advanced directly into the peritoneal cavity. Peritoneal placement was confirmed with the laparoscope the pneumoperitoneum was created, and the underlying abdominal contents were intact. The patient was placed in Trendelenburg and the above findings were noted. Right and left lateral 5 mm trochars were placed under direct visualization without difficulty. The ureters were seen peristalsing. The infundibulopelvic ligaments were then clamped, sealed and transected with the LigaSure device. The round ligaments were clamped sealed and transected and a window was made in the peritoneum. The bladder flap was dissected down with the LigaSure device and blunt dissection and the uterine arteries were then skeletonized. The uterine arteries were clamped, sealed but not transected with the LigaSure device. At this point the pedicles were all examined and found to be hemostatic. Attention was turned to the vaginal portion of the case. 1% lidocaine with dilute epinephrine solution was used to infiltrate the anterior vaginal epithelium over the cervix. An incision was made from 3 to 9:00 across the anterior vaginal epithelium and the vaginal epithelium was dissected back with blunt sharp dissection. The anterior colpotomy incision was made. The vaginal epithelium on each side of the cervix at 3 and 9:00 was clamped, transected and suture ligated. The next pedicle contained the anterior peritoneum and part of the cardinal ligament. The pedicle was was clamped with a Reymundo clamp, transected and suture-ligated. Hemostasis was noted. The uterine fundus was brought through the anterior colpotomy incision. The uterosacral ligaments and vaginal cuff were secured with Reymundo clamps. The pedicles were transected. The uterus and cervix were then amputated and removed. The pedicles were secured with an 0 Vicryl suture. At this point, the pedicles were all examined and hemostasis was assured. A qyxbfw-zk-ehsaz was needed in the midline and the vaginal cuff between the uterosacrals to tack the peritoneum down to the posterior vaginal wall. The vaginal cuff was then closed in a horizontal fashion with interrupted 0 Vicryl aekfnc-al-olzqj sutures. Care was taken to secure the vagina to the uterosacral ligaments. A sponge stick was placed in the vagina to help place traction against the vaginal cuff. The laparoscope was reinserted into the abdomen and the pneumoperitoneum was re-created. The pedicles were reexamined and found to be hemostatic. The vaginal cuff was hemostatic. The suction social media content manager was used to clear the small amount of blood in the posterior cul-de-sac. The right and left lateral ports were taken out and the sites were hemostatic. The pneumoperitoneum was released and even under low pressure there was no bleeding of any of the pedicles are vaginal cuff. The umbilical port was removed. The umbilical skin incisions were closed with Monocryl suture and skin glue by the STAMP PRESS OPERATOR. The vaginal instruments were removed by the STAMP PRESS OPERATOR and a vaginal sweep was completed by the STAMP PRESS OPERATOR with me present in the OR. The surgery was performed by me with assistance other than the portions dictated as above. There were no qualified residents available for this procedure. All sponge lap and needle counts were correct and the patient was transferred to the recovery room in stable condition. Grafts/Implants Used: none - Complications none - Admit VTE Documentation VTE Present on Admission: No VTE Mechan Device Prophylaxis: SCD's VTE Pharm Prophylaxis ordered?: No
[2020-10-31] MEDS: Bupivacaine Mpf 0.5% 30 ML VIAL (10:18)
[2020-10-31 11:37] LABS: Hematocrit 39.5 % (37-47); Hemoglobin 12.9 g/dL (12.0-15.0); Mean Corp Hgb Conc 32.7 g/dL (32-36); Mean Corpuscular Hgb 30.2 pg (27.0-32.0); Mean Corpuscular Volume 92.5 fL (81-99); Mean Platelet Vol. 10.9 fl (6.2-12.0); Platelet Count 216 K/mm3 (150-450); RBC Distribution Width CV 12.8 % (11.6-14.6); RBC Distribution Width SD 43.8 fl (35.1-43.9); Red Blood Count 4.27 M/mm3 (4.2-5.4); White Blood Count 11.6 K/mm3 (4.4-11.0)
--- NOTE | 2020-10-31 12:57 | SUR.PHASEII ---
PATIENT UP TO THE RESTROOM TO VOID. STEADY GAIT BUT NOTED A LITTLE DIZZINESS. BACK TO BED. C/O NAUSEA. QUESIE GIVEN ALONG WITH SALTINES AND SARA ESTUARDO. STATED FEELING BETTER AFTER. AT BEDSIDE. VITALS STABLE. OK TO DISCHARGE WHEN SHE STARTS FEELING BETTER.
--- NOTE | 2020-10-31 12:59 | SUR.PHASEII ---
MASK O2 WAS REMOVED AT 1230.
== END 2020-10-31 14:52 | disposition home or self-care (01) ==
LOC: SDC 06:28 → AC 06:29
PROVIDERS: Anesthesiology; PCP Nurse Practitioner Family; Referring Provider Obstetrics & Gynecology; Visit Provider Obstetrics & Gynecology
PROC: 0UT9FZZ Resection of Uterus, Via Natural or Artificial Opening With Percutaneous Endoscopic Assistance (ICD-10-PCS; CPT 58552; principal; 2020-10-31 08:15)
DX: N80.0 Endometriosis of uterus (principal); N83.11 Corpus luteum cyst of right ovary; N83.12 Corpus luteum cyst of left ovary; N83.01 Follicular cyst of right ovary; N83.02 Follicular cyst of left ovary; N87.9 Dysplasia of cervix uteri, unspecified; Z15.09 Genetic susceptibility to other malignant neoplasm; Z85.038 Personal history of other malignant neoplasm of large intestine; Z20.828 Contact with and (suspected) exposure to other viral communicable diseases
CPT/HCPCS: 00944; 58552; 36415; 81025; 82962; 83735; 85027; 86850; 86900; 86901; 87426; 88307; C9803; J7120; A4216; J2405

== ENCOUNTER → 2021-04-30 07:22 | Outpatient (CLI) | payer MEDICAID, SELFPAY ==
[2020-10-31 07:44] VITALS: BMI 27.8
--- NOTE | 2021-04-30 | BRBX_PTH ---
PATIENT: JULIAN MANUEL LOC: [facility] U#:[id number] AGE/SX: 50/F ROOM: RE04/30/[address]: Dr. Dena Kang MD : 1975 BED: DIS: SPEC #: [id number] RECD: 04/30/21 08:53 STATUS: JENNIFER SUJATA #: [id number] OTONIEL: 04/30/21 00:[address]: Dena Kang DEPT: SURGICAL PATHOLOGY RECD BY: Fernando Stanley ENTERED: 04/30/21 13:31 SP TYPE: BREAST BX MARILYN DR: DANAE Elam Tissues: Left breast, NOS Procedures: Surgery Specimen Level IV HEADER OPERATION: Left breast stereotactic biopsy PRE-OP DIAGNOSIS: Grouped regional heterogeneous calcifications left breast 12 o?clock mid depth TISSUE SUBMITTED: Left breast core tissue ISCHEMIC TIME: 1 minute FIXATION TIME: 11.5 hours MICROSCOPIC DIAGNOSIS Left breast, calcification 12 o?clock mid depth, stereotactic core biopsy: Fibrocystic changes and extensive dense fibrosis. Negative for atypia or malignancy. Frequent microcalcifications. See comment. SUNNY:jaylon 05/01/2021 COMMENT Correlation with clinical, radiologic findings and appropriate follow up are necessary. MICROSCOPIC DESCRIPTION Slides are reviewed. GROSS DESCRIPTION Received is one container labeled with the patient's name and not further designated. The specimen consists of multiple irregular fragments of yellow-white soft tissue that in aggregate measure 2 x 2 x 0.2 cm. The specimen is totally submitted in one cassette. / AM:jaylon 04/30/21 TC:5 CPT: 90828
[2021-04-30 08:10] VITALS: BP 103/60; PULSE 76; RESP 16; O2SAT 99
[2021-04-30 08:16] VITALS: BP 109/62; PULSE 80; RESP 16; O2SAT 98
--- NOTE | 2021-04-30 08:36 | PCM.OPRPT ---
Report of Operation Date of Procedure: 04/30/21 Pre-Operative Diagnosis: abnormal calcifications on left breast mammograms Post-Operative Diagnosis: same Surgery/Procedure Performed:: left breast stereotactic biopsy Surgeon: Dena Kang Type of Anesthesia: Local Specimen's removed: left breast tissue Estimated Blood Loss (mL): minimal Description of Procedure: After informed consent was given, the patient was brought into the Breast Biopsy suite. Appropriate time out protocol was followed. The patient was placed in the prone position on the stereotactic biopsy table. The patient?s left breast was then placed in the opening at the head of the biopsy table. A outboard motorboat rigger compression mammogram was then obtained in the CC view. The suspicious radiological lesion was thus identified. Stereo pictures of the lesion were then taken for XYZ coordinates. The Mammotome biopsy stylus was then positioned where it would be entering into the patient?s breast. The skin at this site was then cleansed with a surgical skin preparation. The skin and subcutaneous tissues at this site were then infiltrated with 1% xylocaine. A small skin incision was made with an 11 blade scalpel. The biopsy stylus was then positioned into the patient?s breast at the proper coordinates of depth. Using the Mammotome vacuum-assist device, several core samples of breast tissue were obtained. A specimen mammogram was the obtained. It revealed that the abnormal calcifications were within the specimen. I reviewed this personally and concluded that the tissue sampling was adequate. A hemostatic marker clip was then placed into the biopsy cavity and a outboard motorboat rigger film revealed that it was properly deployed. The patient was then placed in the supine position and pressure was applied to the breast until no active bleeding was noted. Steristrips were applied to reapproximate the skin. A unilateral mammogram in the CC and MLO view were then taken which revealed that the marker clip was in the same area as the previous suspicious lesion. The patient tolerated the procedure well and was discharged from the Breast Biopsy suite in good condition. Complications none noted
== END ==
PROVIDERS: PCP Nurse Practitioner Family; Referring Provider Surgery; Visit Provider Surgery
DX: N60.12 Diffuse cystic mastopathy of left breast (principal)
CPT/HCPCS: 19081; 88305; J7050; A4648